=== PATIENT | male | born 1965 | race African-American/Black ===

== ENCOUNTER 2023-04-18 14:25 | Outpatient (CLI) | payer BC ==
[2023-04-18 16:09] LABS: Bilirubin Neg (Negative); Blood, Urine 10 (Negative); Clarity Clear (Clear); Glucose, Urine (Dipstick) >=1000 mg/dL (Negative); Ketone, Urine Negative (Negative); Leukocyte Negative (Negative); Nitrite Negative (Negative); Protein, Urine (Dipstick) Negative (Neg-Trace)
[2023-04-18 16:11] LABS: Hemoglobin 14.1 g/dL (13.5-17.5); Mean Corpuscular HGB CONC 35.3 g/dL (32.0-36.0); Mean Corpuscular Hemoglobin 31.4 pg (27.0-33.0); Mean Corpuscular Volume 89.1 fl (81.2-95.1); Mean Platelet Volume 10.8 fl (7.4-10.4); Platelet Count 199 10x3/uL (150-450); RBC Distribution Width 12.9 % (11.5-14.5); Red Blood Cell (RBC) Count 4.49 10x6/uL (4.32-5.72); White Blood Cell (WBC) Count 4.4 10x3/uL (3.5-10.5)
[2023-04-18 16:23] LABS: Bacteria/HPF None Seen HPF (None Seen); RBC/HPF 0-3 HPF (0-3); Squamous Epithelial None Seen HPF (0-3); WBC/HPF None Seen HPF (0-3)
[2023-04-18 16:26] LABS: PTT 28.1 sec (22.0-33.0); Prothrombin Time 10.9 sec (9.5-12.1)
[2023-04-18 16:28] LABS: Anion Gap 20 mmol/L (10-20); BUN (Urea Nitrogen) 11 mg/dL (8.4-25.7); Calc. Creatinine Clearance 0 mL/min (70-130); Calcium 9.2 mg/dL (7.8-10.44); Carbon Dioxide 20 mmol/L (22-29); Chloride 102 mmol/L (98-107); Estimated GFR 52; Glucose 398 mg/dL (70-105); Potassium 4.6 mmol/L (3.5-5.1); Sodium 137 mmol/L (136-145)
== END 2023-04-18 14:26 | disposition home or self-care (01) ==
LOC: LABBT 14:25
PROVIDERS: ATTEND Urology
DX: Z01.818 Encounter for other preprocedural examination (principal); C61 Malignant neoplasm of prostate; N40.1 Benign prostatic hyperplasia with lower urinary tract symptoms; E11.9 Type 2 diabetes mellitus without complications; R39.12 Poor urinary stream; N50.811 Right testicular pain; N50.812 Left testicular pain; N52.1 Erectile dysfunction due to diseases classified elsewhere
CPT/HCPCS: 80048; 81001; 85027; 85610; 85730; 87086; 93005; 93010

== ENCOUNTER 2023-05-02 06:33 | Day surgery (SDC) | payer OTHER, BC ==
[2023-04-18 15:12] VITALS: BMI 35.6
[2023-05-02] MEDS ORDERED: LevoFLOXacin D5W 500 mg (100 mL) BAG ONE (09:56)
[2023-05-02] MEDS ORDERED: PROPOFOL 20 ML ONE ×3 (10:33→10:58)
[2023-05-02] MEDS ORDERED: Midazolam HCl 2 mg/2 ml Vial ONE (10:49)
[2023-05-02] MEDS ORDERED: fentaNYL 50 mcg/mL 1 mL Vial ONE (11:15)
[2023-05-02] MEDS ORDERED: Phenazopyridine HCl 100 MG TAB ONE ×2 (11:44→11:47)
[2023-05-02] MEDS ORDERED: Oxybutynin 5 MG TAB ONE (11:44)
== END 2023-05-02 15:19 | disposition home or self-care (01) ==
LOC: SDC 06:33
PROVIDERS: ATTEND Urology
PROC: 0T7D8DZ Dilation of Urethra with Intraluminal Device, Via Natural or Artificial Opening Endoscopic (ICD-10-PCS; principal; 2023-05-02)
DX: N40.1 Benign prostatic hyperplasia with lower urinary tract symptoms (principal); E11.9 Type 2 diabetes mellitus without complications; N52.1 Erectile dysfunction due to diseases classified elsewhere; R39.12 Poor urinary stream; Z85.46 Personal history of malignant neoplasm of prostate
CPT/HCPCS: 36416; J1956; J2250; J2704; J3010; L8699